=== PATIENT | female | born 1995 | race Caucasian/White ===

== ENCOUNTER 2016-11-01 07:49 | Emergency (ER) | payer MEDICAID ==
[~2016-11-01] VITALS: Ht 149.9 cm; Wt 59.0 kg
[2016-11-01] MEDS ORDERED: AMOXICILLIN500 MG ORAL (08:26)
[2016-11-01] MEDS ORDERED: IBUPROFEN600 MG ORAL (08:26)
--- NOTE | 2016-11-01 08:38 | Emergency Room Report ---
History of Present Illness General Chief Complaint: Sore Throat Source: Patient Present Illness HPI Patient presents with sore throat for one week. She's had some fevers and chills. She also has muscle aching. She's tried multiple alrm-gaj-fsyxrko medications without help. The pain is 10/10 nonradiating - sharp. Denies any vomiting or diarrhea. Last period was 2 weeks ago. The throat is red and swollen there is been no change in her voice. She is able to tolerate by mouth fluids. Her son is also with upper respiratory infection. He has a mucous drainage from his nose. Allergies: Coded Allergies: No Known Allergies (Unverified , 11/01/16) Patient History Past Medical History: see triage record Social History Narrative At home caring for her son Last Menstrual Period: 2 weeks ago Reviewed Nursing Documentation: PMH: Agreed, PSxH: Agreed Nursing Documentation-PMH Past Medical History: No Stated History Review of Systems All Other Systems: negative except mentioned in HPI Physical Exam Vital Signs Date Time Temp Pulse Resp B/P Pulse Ox O2 Delivery O2 Flow Rate FiO2 11/01/16 07:59 98.6 93 16 116/78 97 Room Air 11/01/16 08:30 21 Sp02 EP Interpretation: reviewed, normal General Appearance: well appearing, no apparent distress, GCS 15, non-toxic Head: normocephalic, atraumatic Eyes: bilateral eye PERRL, bilateral eye normal inspection ENT: normal voice, moist mucus membranes, tonsillar swelling, pharyngeal erythema Neck: full range of motion, supple Respiratory: no respiratory distress, speaking full sentences Cardiovascular #1: regular rate, rhythm Cardiovascular #2: 2+ radial (L) Gastrointestinal: normal bowel sounds, non tender Musculoskeletal: back normal, gait/station normal, normal range of motion Neurologic: alert, oriented x3, normal gait, grossly normal Psychiatric: mood/affect normal Skin: no rash Medical Decision Making Diagnostic Impression: Primary Impression: Sore throat ER Course Patient presents with sore throat. Exam is consistent with either viral or strep. The patient does not appear toxic. There is no evidence of peritonsillar abscess. The patient has significant pain and therefore steroids will be given. In addition to that should be sure the antibiotics. The patient is stable for outpatient observation and treatment. Last Vital Signs Date Time Temp Pulse Resp B/P Pulse Ox O2 Delivery O2 Flow Rate FiO2 11/01/16 08:50 82 16 99/53 100 Room Air 11/01/16 08:50 98.2 21 Status: improved Disposition: HOME, SELF-CARE Condition: Improved Scripts Ibuprofen* (MOTRIN*) 600 Mg Tablet 600 MG ORAL Q8H Y for For Pain, #16 TAB 0 Refills Prov: Nazario Villasenor M.D. 11/01/16 Amoxicillin* (AMOXIL*) 500 Mg Capsule 500 MG ORAL EVERY 8 HOURS, #21 CAP Prov: Nazario Villasenor M.D. 11/01/16 Referrals: NOT CHOSEN IPA/,REFERRING (PCP) Patient Instructions: Tonsillitis Additional Instructions: Salt water gargles. Chlorceptic or cepacol. Tylenol or advil OK. Nazario Villasenor M.D. Nov 01, 2016 08:38
[2016-11-01 08:50] VITALS: BP 99/53
== END 2016-11-01 08:53 | disposition home or self-care (01) ==
LOC: EMR 08:07
DX: R07.0 Pain in throat (principal)
CPT/HCPCS: 94640; 94664; 99284; J8540